=== PATIENT | male | born 1980 | race Caucasian/White ===

== ENCOUNTER → 2021-05-23 | Day surgery (SDC) | payer OTHER ==
[~2021-05-23] MED LIST: ATORVASTATIN CA20 MG PO; BUPIVACAINE 0.25% 30ML SDV ONE; CLOMIPHENE CITR50 MG PO; CYMBALTA30 MG PO; HYDROCODONE/APAP 5MG-325MG TAB ONE; HYDROMORPHONE 1MG/1ML INJ ONE; HYDROMORPHONE 2MG/ML 2 MG/ML ML ONE; LIDOCAINE 1% W/EPINEPHRINE 20 ML VIAL ONE; LOSARTAN POTASS25 MG PO; MELOXICAM7.5 MG PO; SODIUM CHLORIDE 0.9% 50ML 100 ML ONE
[2021-05-23 15:35] VITALS: BP 132/86
== END | disposition home or self-care (01) ==
LOC: OR 09:59
PROVIDERS: ATTEND Orthopaedic Surgery
DX: M94.261 Chondromalacia, right knee (principal); M22.2X2 Patellofemoral disorders, left knee; M23.41 Loose body in knee, right knee; I10 Essential (primary) hypertension; Z83.3 Family history of diabetes mellitus; Z82.49 Family history of ischemic heart disease and other diseases of the circulatory system; Z01.810 Encounter for preprocedural cardiovascular examination; Z01.812 Encounter for preprocedural laboratory examination; Z20.822 Contact with and (suspected) exposure to COVID-19; S83.281A Other tear of lateral meniscus, current injury, right knee, initial encounter
CPT/HCPCS: 27415; 29879; 29881; 93005; J0690; J1170 ×2; U0002